=== PATIENT | female | born 1990 | race Hispanic/Latino ===

== ENCOUNTER 2018-04-21 12:48 | Emergency (ER) | payer BC ==
[~2018-04-21] VITALS: Ht 157.5 cm; Wt 59.4 kg
--- NOTE | 2018-04-21 13:47 | Diagnostic Imaging Report ---
EXAM: XR CHEST 2 VIEWS DATE: 04/21/2018 12:00 AM INDICATION: Cough COMPARISON: None FINDINGS: Lines and Tubes: None Heart and Mediastinum: No acute cardiomediastinal findings. Lungs and Pleura: Minimal opacities lung bases have the appearance of atelectasis and/or overlying soft tissues. No focal consolidation on lateral view. Bones and Soft Tissues: No acute findings. IMPRESSION: 1. No acute cardiopulmonary findings. Signed by: Dr. Baljeet Chiang MD on 04/21/2018 1:44 PM
== END 2018-04-21 14:00 | disposition home or self-care (01) ==
LOC: FSED 12:48
DX: R05 Cough (principal); J02.0 Streptococcal pharyngitis
CPT/HCPCS: 71046; 83518; 87400; 99284